=== PATIENT | male | born 1980 | race Asian ===

== ENCOUNTER 2016-12-11 00:04 | Emergency (ER) | payer MEDICAID ==
[~2016-12-11] VITALS: Ht 180.3 cm; Wt 80.7 kg
[2016-12-11 00:10] VITALS: BP_SYST 125
[2016-12-11] MEDS ORDERED: DIPH-TET Vacc 0.5 ML VIAL I.M. ONE (00:45)
[2016-12-11 01:00] VITALS: BP_SYST 125
== END 2016-12-11 01:00 | disposition home or self-care (01) ==
LOC: SED 00:04
DX: S81.852A Open bite, left lower leg, initial encounter (principal); W54.0XXA Bitten by dog, initial encounter; Y93.89 Activity, other specified; Y92.89 Other specified places as the place of occurrence of the external cause; Y99.8 Other external cause status
CPT/HCPCS: 90714; 99283

== ENCOUNTER 2017-06-12 09:43 | Emergency (ER) | payer MEDICAID ==
[~2017-06-12] VITALS: Ht 180.3 cm; Wt 80.7 kg
[2017-06-12 10:09] VITALS: BP_SYST 131
[2017-06-12 12:55] VITALS: BP_SYST 126
== END 2017-06-12 12:55 | disposition home or self-care (01) ==
LOC: SED 09:43
DX: H10.89 Other conjunctivitis (principal)
CPT/HCPCS: 99282